=== PATIENT | female | born 1995 | race Two or more races ===

== ENCOUNTER 2020-02-03 03:51 | Inpatient (IN) ==
[2020-02-03 04:22] LABS: BILIRUBIN,URINE NEGATIVE (NEGATIVE); BLOOD/HEMOGLOBIN,URINE NEGATIVE (NEGATIVE); GLUCOSE, URINE NEGATIVE (NEGATIVE); KETONES,URINE NEGATIVE (NEGATIVE); LEUKOCYTE ESTERASE ,URINE NEGATIVE (NEGATIVE); NITRITES,URINE NEGATIVE (NEGATIVE); PROTEIN,URINE NEGATIVE (NEGATIVE); UROBILINOGEN,URINE NORMAL (NORMAL)
[2020-02-03 04:24] VITALS: BMI 25.1
[2020-02-03 04:24] LABS: APPEARANCE,URINE CLEAR (CLEAR); COLOR,URINE YELLOW (YELLOW)
[2020-02-03 04:25] LABS: AMNISURE ROM TEST THERE IS A RUPTURE (NO RUPTURE)
[2020-02-03] MEDS ORDERED: D5LR 1L W PITOCIN 10 UNITS/L 10 UNITS/1,000 ML BAG IV ONE (04:59)
[2020-02-03] MEDS ORDERED: PITOCIN ONE (05:00)
[2020-02-03] MEDS ORDERED: D5 1/2 NS 1L W PITOCIN 20 UNITS/L 20 UNITS/1,000 ML BAG IV ONE (05:00)
[2020-02-03 05:04] LABS: BASOPHILS # (AUTO) 0.1 X10^3/uL (0.0-0.1); EOSINOPHILS # (AUTO) 0.1 x10^3/uL (0.0-0.2); EOSINOPHILS % (AUTO) 1.3 % (0.9-2.9); HEMATOCRIT 41.1 % (36.0-47.0); HEMOGLOBIN 13.7 g/dL (12.0-16.0); LYMPHOCYTES # (AUTO) 2.3 X10^3/uL (1.3-2.9); LYMPHOCYTES % (AUTO) 20.3 % (21.0-51.0); MEAN CORPUSCULAR HEMOGLOBIN 30.2 pg (27.0-34.0); MEAN CORPUSCULAR HGB CONC 33.5 g/dL (33.0-35.0); MEAN CORPUSCULAR VOLUME 90.2 fL (80.0-100.0); MEAN PLATELET VOLUME 9.9 fL (7.4-11.0); MONOCYTES # (AUTO) 0.7 x10^3/uL (0.3-0.8); MONOCYTES % (AUTO) 6.3 % (0.0-13.0); NEUTROPHILS # (AUTO) 7.9 x10^3/uL (2.2-4.8); NEUTROPHILS % (AUTO) 71.1 % (42.0-75.0); PLATELET COUNT 163 X10^3/uL (150.0-450.0); RED BLOOD COUNT 4.55 X10^6/uL (3.5-5.4); RED CELL DISTRIBUTION WIDTH 14.7 % (11.6-16.5); WHITE BLOOD COUNT 11.1 X10^3/uL (3.6-10.0)
[2020-02-03 05:06] LABS: BLOOD UREA NITROGEN 7 mg/dL (7-18); CALCIUM 8.7 mg/dL (8.5-10.1); CARBON DIOXIDE 22.5 mmol/L (21-32); CHLORIDE 104 mmol/L (98-107); CREATININE 0.66 mg/dL (0.55-1.02); SODIUM 138 mmol/L (136-145); eGFR NON BLACK RACES > 60 (>60)
[2020-02-03] MEDS ORDERED: D5 1/2 NS 1000 ML 1,000 ML IV ONE (05:17)
[2020-02-03] MEDS ORDERED: PHENERGAN INJ 25 MG IM PRN ×2 (05:35→11:07)
[2020-02-03] MEDS ORDERED: PITOCIN IVP ONE (05:35)
[2020-02-03] MEDS ORDERED: D5LR 1L W PITOCIN 10 UNITS/L 10 UNITS/1,000 ML BAG IV PRN (05:35)
[2020-02-03] MEDS ORDERED: MORPHINE SULFATE INJ 2 MG INJ IVP PRN (05:35)
[2020-02-03] MEDS ORDERED: REGLAN INJ 10 MG VIAL IVP PRN (05:35)
[2020-02-03] MEDS: D5 1/2 NS 1000 ML 1,000 ML IV SCH ×2 (06:25→15:58)
[2020-02-03] MEDS ORDERED: XYLOCAINE 2 % (PLAIN) ONE (10:18)
[2020-02-03] MEDS ORDERED: D5 1/2 NS 1000 ML 1,000 ML with PITOCIN 20 UNITS IV SCH ×2 (12:00)
[2020-02-03] MEDS ORDERED: ADACEL or BOOSTRIX TDaP VACCINE IM ONE ×2 (13:04→16:48)
[2020-02-03] MEDS ORDERED: DERMOPLAST PAIN RELIEF SPRAY TOP PRN (13:04)
[2020-02-04 05:41] LABS: HEMATOCRIT 39.8 % (36.0-47.0); HEMOGLOBIN 13.2 g/dL (12.0-16.0)
[2020-02-04] MEDS: PRENATAL PLUS PO SCH (09:03)
[2020-02-04] MEDS: MOTRIN TAB 800 MG PO PRN (21:27)
[2020-02-04] MEDS ORDERED: PREPARATION H OINT RECTAL PRN (23:00)
[2020-02-04] MEDS ORDERED: PROCTOZONE HC CRM 2.5% (ANUSOL-HC) TOP PRN (23:00)
[2020-02-05] MEDS: MOTRIN TAB 800 MG PO PRN (06:12)
[2020-02-05] MEDS: PRENATAL PLUS PO SCH (09:13)
[2020-02-05 10:01] VITALS: BP 109/64
== END 2020-02-05 10:50 | disposition home or self-care (01) | DRG 807 ==
LOC: ER 03:51 → LD 05:03 → MED/SURG 13:07
PROVIDERS: ADMIT Obstetrics & Gynecology Obstetrics; ATTEND Obstetrics & Gynecology Obstetrics
DX: O70.1 Second degree perineal laceration during delivery; Z37.0 Single live birth; O23.33 Infections of other parts of urinary tract in pregnancy, third trimester; Z23 Encounter for immunization; Z3A.39 39 weeks gestation of pregnancy; O26.893 Other specified pregnancy related conditions, third trimester